=== PATIENT | female | born 1965 | race Caucasian/White ===

== ENCOUNTER → 2016-11-26 | Outpatient (CLI) | payer OTHER ==
--- NOTE | 2016-11-26 16:44 | CT ---
CT of the Left Lower Extremity Without Contrast With Multiplanar Reconstructions History: M25.569, osteoarthritis, left knee pain. [facility] preoperative study. Comparison: None. Technique: Noncontrast axial computed tomographic images of the left hip, knee, and ankle with multip lanar reconstructions. CT Dose reduction techniques utilized. Findings: Reconstruction images of the left knee demonstrates severe complete loss of medial tibiofem oral joint space with subchondral sclerosis of the medial femoral condyle and tibial plateau, and lar ge medial and lateral femoral condyle and tibial plateau osteophytes. Slight varus deformity of the l eft knee. Severe patellofemoral joint space narrowing with circumferential patellar osteophytes. Mode rate joint effusion. No significant degenerative changes of the left hip. No significant degenerative changes of the left ankle. Impression: 1. Severe tricompartmental osteoarthritis of the left knee worse in the medial tibial femoral compart ment. 2. Severe chondromalacia patellae and osteoarthritis.
== END ==
LOC: FIMAGING 12:32
PROVIDERS: ATTEND Orthopaedic Surgery
DX: Z01.818 Encounter for other preprocedural examination (principal); M17.12 Unilateral primary osteoarthritis, left knee; M22.42 Chondromalacia patellae, left knee

== ENCOUNTER 2016-12-09 06:38 | Inpatient (IN) | payer OTHER ==
[2016-11-26 09:44] LABS: % IMMATURE GRANULYOCYTES 0.5 % (0.0-1.1); ABSOLUTE IMMATURE GRANULOCYTES 0.04 10^3/uL (0.00-0.10); ADD DIFF? NO; ADD MORPH? NO; ADD SCAN? NO; ATYPICAL LYMPHOCYTE FLAG 20 (0-99); FRAGMENT RBC FLAG 0 (0-99); HEMATOCRIT 49.3 % (38.0-47.0); HEMOGLOBIN 16.9 g/dL (12.6-16.3); LEFT SHIFT FLG 0 (0-99); LIPEMIA HEMOLYSIS FLAG 90 (0-99); MEAN CELL HEMOGLOBIN 33.4 pg (27.9-34.1); MEAN CELL HEMOGLOBIN CONCENTR. 34.3 g/dL (32.4-36.7); MEAN CELL VOLUME 97.4 fL (81.5-99.8); MEAN PLATELET VOLUME 9.5 fL (8.7-11.7); PLATELET CLUMPS FLAG 0 (0-99); PLATELET COUNT 207 10^3/uL (150-400); RED BLOOD CELL COUNT 5.06 10^6/uL (4.18-5.33); RED CELL DISTRIBUTION WIDTH 12.8 % (11.5-15.2)
[2016-12-09] MEDS ORDERED: TRANEXAMIC ACID 3,000 MG in NS 50 ML IRR ONE (07:00)
[2016-12-09] MEDS ORDERED: ACETAMINOPHEN 325 MG TAB PO ONE (07:00)
[2016-12-09] MEDS ORDERED: CHLORHEXIDINE GLUC HIBICLENS 118 ML BTL TP ONE (07:00)
[2016-12-09] MEDS ORDERED: DEXAMETHASONE 4 MG/ML VIAL IVP ONE (07:00)
[2016-12-09] MEDS ORDERED: ROPI/epiNEPH/KETOROLAC JOINT COCKTAIL IU ONE (07:00)
[2016-12-09] MEDS ORDERED: FAMOTIDINE 20 MG TAB PO ONE (07:00)
[2016-12-09] MEDS ORDERED: CEFAZOLIN 2 GM/DEXTR 100 ML IV ONE (07:00)
[2016-12-09] MEDS ORDERED: VANCOMYCIN 1 GM VIAL IV ONE (07:08)
[2016-12-09] MEDS ORDERED: SKIN ADHESIVE (DERMABOND) 1 EACH TP ONE (07:08)
[2016-12-09] MEDS ORDERED: TRANEXAMIC ACID 3,000 MG/50 ML BAG IRR ONE (07:08)
[2016-12-09] MEDS ORDERED: LR 1,000 ML IV ONE (07:23)
[2016-12-09] MEDS ORDERED: LIDOCAINE 1% 5 ML SDV ID PRN (07:23)
[2016-12-09] MEDS ORDERED: MIDAZOLAM 2 MG/2 ML VIAL ONE (07:54)
[2016-12-09] MEDS ORDERED: PROPOFOL/EMULSION 500 MG/50 ML BOTTLE IV ONE (08:00)
[2016-12-09] MEDS ORDERED: epHEDrine SULFATE 10 MG/ML SYR ONE (08:36)
[2016-12-09] MEDS ORDERED: LIDOCAINE 2% 5 ML SDV ONE (08:36)
[2016-12-09] MEDS ORDERED: PHENYLEPHRINE HCL 100 MCG/ML SYR ONE (08:36)
[2016-12-09] MEDS ORDERED: PROPOFOL 200 MG/20 ML VIAL ONE (09:27)
[2016-12-09] MEDS ORDERED: GLYCOPYRROLATE 0.2 MG/1 ML VIAL ONE (09:28)
[2016-12-09] MEDS ORDERED: ROPIVACAINE HCL 150 MG/30 ML INJ ONE (10:04)
[2016-12-09] MEDS ORDERED: fentaNYL 100 MCG/2 ML INJ ONE (10:08)
[2016-12-09] MEDS ORDERED: CYCLOBENZAPRINE 10 MG TAB PO PRN (10:15)
[2016-12-09] MEDS ORDERED: PROMETHAZINE HCL 25 MG SUPPR PR PRN (10:15)
[2016-12-09] MEDS ORDERED: PHARMACY PAIN CONSULT 1 EA MISC PRN (10:15)
[2016-12-09] MEDS ORDERED: METOCLOPRAMIDE 10 MG/2 ML VIAL IVP PRN (10:15)
[2016-12-09] MEDS ORDERED: diphenhydrAMINE 25 MG CAP PO PRN (10:15)
[2016-12-09] MEDS ORDERED: BISACODYL 10 MG SUPP PR PRN (10:15)
[2016-12-09] MEDS ORDERED: MAGNESIUM HYDROXIDE 30 ML UDCUP PO PRN (10:15)
[2016-12-09] MEDS ORDERED: ONDANSETRON 4 MG/2 ML VIAL IVP PRN (10:15)
[2016-12-09] MEDS ORDERED: ONDANSETRON DISINTEGRATING 4 MG TAB PO PRN (10:15)
[2016-12-09] MEDS ORDERED: POLYETHYLENE GLYCOL 3350 17 GM PKT PO PRN (10:15)
[2016-12-09] MEDS ORDERED: DIPHENOXYLATE/ATROPINE LOMOTIL 1 TAB PO PRN (10:15)
[2016-12-09] MEDS ORDERED: TEMAZEPAM 15 MG CAP PO PRN (10:15)
[2016-12-09] MEDS ORDERED: PROMETHAZINE HCL 25 MG/ML INJ IVP PRN (10:15)
[2016-12-09] MEDS ORDERED: LACTULOSE 20 GM/30 ML UDCUP PO PRN (10:15)
--- NOTE | 2016-12-09 10:15 | POSTOPPROG ---
Post Op Note Date of Operation: 12/09/16 Surgeon: Brittaney Case Geotechnical Department Manager: mamadou case Anesthesiologist: dr. posey Anesthesia: Spinal, Other (Specify) (adductor canal block) Pre-op Diagnosis: left knee OA Post-op Diagnosis: same Indication: left knee pain due to OA that failed conservative measures Procedure: L TKA robotic assisted Findings: severe knee OA Inf/Abcess present in the surg proc area at time of surgery?: No EBL: 50-100
[2016-12-09] MEDS ORDERED: LR 1,000 ML IV SCH (10:30)
--- NOTE | 2016-12-09 10:45 | DX ---
Left Knee, 2 Views Clinical Indications: Post left knee total replacement Findings: A left knee total replacement is present with the knee in excellent anatomic alignment. Impression: Excellent postoperative alignment
[2016-12-09] MEDS: oxyCODONE IR 5 MG TAB PO PRN ×3 (12:43→19:45)
[2016-12-09] MEDS: ACETAMINOPHEN 325 MG TAB PO SCH ×2 (12:43→17:10)
[2016-12-09] MEDS ORDERED: ceFAZolin 2 GM/DEXTROSE 100 ML IV SCH (14:00)
[2016-12-09] MEDS: ceFAZolin 2 GM/DEXTROSE 100 ML IV SCH (17:11)
[2016-12-09] MEDS: SENNOSIDES/DOCUSATE SODIUM TAB PO SCH (20:17)
[2016-12-09] MEDS: ASPIRIN 325 MG TAB PO SCH (20:17)
[2016-12-09] MEDS: FAMOTIDINE 20 MG TAB PO SCH (20:17)
[2016-12-10] MEDS: ceFAZolin 2 GM/DEXTROSE 100 ML IV SCH (00:22)
[2016-12-10] MEDS: ACETAMINOPHEN 325 MG TAB PO SCH ×3 (00:22→11:43)
--- NOTE | 2016-12-10 03:13 | GOP ---
[f rep st] OPERATIVE REPORT DATE OF OPERATION: 12/09/2016 SURGEON: Zohaib Hollis MD SIGN HANGER: VIJI Valerio ANESTHESIA: Spinal. PREOPERATIVE DIAGNOSIS: Left knee osteoarthritis. POSTOPERATIVE DIAGNOSIS: Left knee osteoarthritis. PROCEDURE PERFORMED: Left total knee arthroplasty with computer navigation and robotic assist. FINDINGS/PATHOLOGY: Severe tricompartmental osteoarthritis. ESTIMATED BLOOD LOSS: 30 cc INDICATIONS: This is a 51-year-old female with severe and progressive pain and deformity of the left knee unresponsive to conservative care. Risks and benefits of the surgical intervention were explained in detail. DESCRIPTION OF PROCEDURE: The patient was brought to the operative room and placed on the table in the supine position. Spinal anesthesia was induced without difficulty. A pneumatic tourniquet was applied about the left proximal thigh, and the leg was prepped and draped in a sterile fashion. The leg kwon was applied. After exsanguination by elevation the tourniquet was inflated to 275 mm of mercury. Incision was made anterior medial from the tibial tuberosity to a point 2 cm proximal to the superior pole of the patella. Medial parapatellar arthrotomy was carried out from the superior pole of the patella and posteriorly in line with the fibers of the Type II VMO. The medial collateral ligament was elevated and the infrapatellar fat pad was resected. The patella was everted and the articular surface was excised. A 29 mm patellar button was placed. Attention was turned first to the distal aspect of the left femur. At 3 cm proximal to the medial rise of the femur, 2 percutaneous half pins were placed for fixation of the femoral array. In a similar fashion, 2 pins were placed anteromedial on the tibia for fixation of the tibial array. External land marking and registration of the hip center was performed without difficulty. Internal femoral and tibial registration was carried out without difficulty and the femoral and tibial checkpoints were placed and verified for accuracy. Attention was turned to the femur. The foot print for the size 2 femoral component was cut with the saw using the [employer] robotic system and verified for accuracy against the CT based plan. In a similar fashion, saw was used to cut the footprint for the size 3 tibial component using the Sab[employer] Seven system and verified for accuracy against the CT based plan. The tibial articular surface was excised without difficulty, followed by the intercondylar box cut. The knee was extended and the remnants of the medial and lateral meniscus were excised. The posterior capsule was injected with ropivacaine, epinephrine and Toradol. A size 3 MIS mini-keel tibial tray was positioned. Trial reduction was then carried out. There was excellent range of motion, alignment, and stability using the 9 mm polyethylene. All trials were then removed. The joint was thoroughly irrigated and carefully dried. Two packages of cement and 2 grams of vancomycin were mixed in the vacuum mixer and placed on the fixation surfaces of all surfaces of the components. The components were implanted and all excess cement was thoroughly removed. The permanent 9 mm polyethylene was placed without difficulty. The tourniquet was deflated and all bleeders were coagulated. The wound was thoroughly irrigated and closed using interrupted sutures of 2-0 Vicryl for the joint capsule. The subcu was closed with 3-0 Vicryl and the skin with 4-0 Monocryl. Dermabond and Steri-Strips were applied followed by a compressive dressing. The patient was then moved from the operating room to the recovery room in good condition, having tolerated the procedure well. /[id number]/MODL MTDD
[2016-12-10 04:40] VITALS: O2SAT 94
[2016-12-10] MEDS: oxyCODONE IR 5 MG TAB PO PRN ×3 (04:47→10:51)
[2016-12-10 05:00] LABS: HEMATOCRIT 43.7 % (38.0-47.0); HEMOGLOBIN 15.2 g/dL (12.6-16.3)
[2016-12-10 08:08] VITALS: BP 121/79; PULSE 77; RESP 16; TEMP 98.3
[2016-12-10] MEDS: FAMOTIDINE 20 MG TAB PO SCH (08:17)
[2016-12-10] MEDS: ASPIRIN 325 MG TAB PO SCH (08:17)
[2016-12-10] MEDS: SENNOSIDES/DOCUSATE SODIUM TAB PO SCH (08:17)
--- NOTE | 2016-12-10 09:35 | SOAPPROG ---
SOAP Progress Note Assessment/Plan: Assessment: Patient is doing well POD 1 s/p L TKA 1.Pain management: pain is well controlled on oral pain meds 2.Anemia: level is expected initially postop. Asymptomatic. Cont to monitor for symptoms 3.VTE ppx: recommend aspirin 325mg daily. Cont NILS hosberna and SCD 4. d/c planning: d/c to home today pending release from PT. Plan: 12/10/16 09:34 Subjective: Karen is doing well today, denies SOB,chest pain and N/v. Objective: Vital Signs Temp Pulse Resp BP Pulse Ox 36.8 C 77 16 121/79 H 94 12/10/16 08:00 12/10/16 08:00 12/10/16 08:00 12/10/16 08:00 12/10/16 08:00 Laboratory Results 12/10/16 04:35 12/09/16 12/10/16 12/11/16 05:59 05:59 05:59 Intake Total 4880 Output Total 3815 Balance 1065 LLE: incision dressing is clean and dry, NVI, +pf/df ICD10 Worksheet Patient Problems: Problems Problem Status Diagnosed Primary localized osteoarthritis of left knee Acute
--- NOTE | 2016-12-10 14:00 | GDS ---
[f rep st] DISCHARGE SUMMARY ADMISSION DIAGNOSIS: Left knee osteoarthritis. DISCHARGE DIAGNOSIS: Left knee osteoarthritis. PROCEDURE: Left total knee arthroplasty. VTE PROPHYLAXIS: Aspirin recommended for 3 weeks daily. BRIEF DESCRIPTION OF HOSPITAL STAY: Patient was admitted for an elective joint arthroplasty. The pa tient tolerated the procedure well and has passed physical therapy. The patient was given appropriat e antibiotic prophylaxis and venous thromboembolism prophylaxis. The patient's pain was well control led on oral pain medication, patient was holding down food, and had urinated. Decision was made to d ischarge the patient. The patient was given post-operative prescriptions pre-operatively. PLAN: Please follow up as scheduled, December 29 at 10 a.m. /[id number]/MODL
== END 2016-12-10 12:14 | disposition home or self-care (01) | DRG 470 ==
LOC: F3N 06:38
PROVIDERS: ADMIT Orthopaedic Surgery; ATTEND Orthopaedic Surgery
PROC: 8E0YXCZ Robotic Assisted Procedure of Lower Extremity (ICD-10-PCS; principal; 2016-12-09 09:15)
PROC: 0SRD0J9 Replacement of Left Knee Joint with Synthetic Substitute, Cemented, Open Approach (ICD-10-PCS; principal; 2016-12-09 09:15)
DX: M17.12 Unilateral primary osteoarthritis, left knee (principal)
CPT/HCPCS: 97110-GP; 97116-GP; 97161-GP; 97165-GO; 97530-GP; C1713; J0171; J0690; J1100; J1885; J2250; J2370; J2704; J2795; J3010; J3370